=== PATIENT | male | born 1955 | race Caucasian/White ===

== ENCOUNTER → 2021-05-04 09:24 | Outpatient (CLI) | payer BC, SELFPAY ==
--- NOTE | ~2021-05-04 | CT_ITS ---
EXAMINATION: CT abdomen pelvis wo con DATE: 05/04/2021 09:56 INDICATION: Ventral hernia without distention or gangrene TECHNIQUE: Computed tomography (CT) of the abdomen and pelvis was performed without intravenous contr ast. The dose-length product (DLP) was 1069.14 mGy-cm. Automated exposure control and iterative recon struction technique were employed. COMPARISON: None FINDINGS: Minimal dependent atelectasis is present in the lung bases. The heart size is normal. A 2 m m nodule of the left lower lobe likely reflects old granulomatous disease. There is bilateral gynecom astia. The liver, spleen, pancreas,, and adrenal glands are normal. There appears to be sludge in the otherwise normal gallbladder. There is a 1.9 cm cyst of the left kidney. The right kidney is unremar kable. There is calcified atherosclerosis of the aorta and many of the other arteries. No pathologica lly enlarged abdominal or pelvic lymph nodes are identified. There is no free intraperitoneal gas or evidence of bowel obstruction. Colonic diverticulosis is present without evidence of diverticulitis. There is mild lumbar spondylosis. Changes of mesh ventral hernia repair are noted. There is a small ventral hernia containing fat just cranial to the hernia repair mesh. IMPRESSION: 1. Small midline ventral hernia containing fat just cranial to the hernia repair mesh. Reviewed, dictated and finalized at location B. IMPRESSION: 1. Small midline ventral hernia containing fat just cranial to the hernia repai r mesh.
== END ==
PROVIDERS: Visit Provider Surgery
DX: K43.9 Ventral hernia without obstruction or gangrene (principal)
CPT/HCPCS: 74176

== ENCOUNTER 2021-05-31 14:00 | Outpatient (RCR) | payer BC, SELFPAY ==
[2021-05-01 12:55] VITALS: BMI 31.9
[2021-05-01 12:56] VITALS: BMI 31.9
== END 2021-07-16 14:13 | disposition home or self-care (01) ==
LOC: ANHDMC 14:00
PROVIDERS: PCP Family Medicine; Referring Provider Family Medicine; Visit Provider Family Medicine
DX: E11.65 Type 2 diabetes mellitus with hyperglycemia (principal); Z79.4 Long term (current) use of insulin; Z71.3 Dietary counseling and surveillance; Z71.89 Other specified counseling
CPT/HCPCS: 97804; G0108

== ENCOUNTER 2021-06-06 10:33 | Outpatient (CLI) | payer BC, SELFPAY ==
--- NOTE | 2021-06-06 10:30 | ECG_ITS ---
Measurements Intervals [place] Rate: 65 P: 48 UT: 166 QRS: -42 QRSD: 116 T: 33 QT: 383 QTc: 401 Interpretive Statements SINUS RHYTHM WITH SINUS ARRHYTHMIA ATRIAL PREMATURE COMPLEX LEFT AXIS DEVIATION INCOMPLETE RIGHT BUNDLE BRANCH BLOCK BASELINE ARTIFACT- I, III, AVR, AVL, AVF BORDERLINE ECG Electronically Signed On 06-06-2021 11:28:26 MOTOR EXPERT by Jr Zhang D.O.
[2021-06-06 11:20] LABS: Basophils Percent Auto 0.5 % (0.2-1.2); Eosinophils Absolute Auto 0.1 K/mm3 (0-0.3); Eosinophils Percent Auto 2.7 % (0-4.4); Hemoglobin 14.5 g/dL (14.0-18.0); Immature Granulocyte Absolute 0.01 K/mm3 (0.00-0.031); Immature Granulocyte Percent A 0.2 % (0-0.5); Lymphocytes Percent Auto 21.7 % (18.3-44.2); Mean Corpuscular HGB Conc 33.7 g/dl (32-36); Mean Corpuscular Hemoglobin 33.3 pg (26-34); Mean Corpuscular Volume 98.6 fl (80-100); Mean Platelet Volume 9.5 fl (7.4-10.4); Monocytes Absolute Auto 0.5 K/mm3 (0.1-0.6); Monocytes Percent Auto 11.4 % (2.6-8.5); Neutrophils Absolute Auto 2.6 K/mm3 (1.3-6.7); Neutrophils Percent Auto 63.5 % (45.5-73.1); Platelet Count Result 239 k/mm3 (150-375); Red Blood Count 4.36 M/mm3 (4.6-6.20); Red Cell Distribution Width 12.1 % (11.5-14.5); White Blood Count 4.1 K/mm3 (4.5-10.0)
[2021-06-06 11:36] LABS: Anion Gap 10 mmol/L (8-16); Blood Urea Nitrogen 27 mg/dL (9-20); Calcium 9.3 mg/dL (8.4-10.2); Carbon Dioxide 24 mmol/L (22-30); Chloride 106 mmol/L (98-107); Estimated Glomerular Filt Rate 56; Glucose 113 mg/dL (65-110); Sodium 140 mmol/L (137-145)
== END 2021-06-06 10:34 | disposition home or self-care (01) ==
PROVIDERS: PCP Family Medicine; Visit Provider Surgery
DX: Z01.818 Encounter for other preprocedural examination (principal); K43.9 Ventral hernia without obstruction or gangrene; I49.9 Cardiac arrhythmia, unspecified; I45.10 Unspecified right bundle-branch block
CPT/HCPCS: 36415; 80048; 85025; 86850; 86900; 86901; 93005

== ENCOUNTER 2021-06-09 18:15 | Observation (INO) | payer BC, SELFPAY ==
[2021-06-04 09:31] VITALS: BMI 29.9
--- NOTE | 2021-06-04 09:42 | PC.NURSE ---
Report to the Outpatient Waiting Room, entrance under the green pavilion located off [facility], at time 6:30 on date 06/08/21. OR Time: 8:30. - You and your visitor will be asked a series of questions to screen for COVID 19 for your protection. - A mask is required within the hospital. - Only one visitor is allowed at this time. Patient visitors will be guided where to wait when not with patient. Preoperative COVID Testing Requirements: TO BRING COVID CARD No COVID Test needed if: (proof is required; if not received patient will have Rapid Test prior to entry) - Patient has received COVID Vaccine at least 14 days prior to procedure date or - Patient has positive COVID test result within last 90 days of surgery date. COVID Test needed if above criteria is not met If not COVID vaccinated a COVID test must be conducted within 72 hours of surgery and patient is asked to isolate self from time of testing until procedure. You will go to the [facility] for your COVID testing. The [facility] is located at the corner of [address] [facility]. You will only be called if COVID results are positive and your surgeon may reschedule your elective surgery date. Patients may have clear liquids (water, carbonated beverages, clear teas, apple juice) until 3 hours prior to surgery with a maximum of 20 ounces. - No food from midnight until time of surgery - Infants may have breast milk until 4 hours before surgery, infant formula 6 hours prior to surgery. - Children will be allowed to drink immediately following surgery. If applicable, please bring a bottle or sippy cup to assist with drinking. Juice, water, soda, and popsicles are readily available. For infants on formula, please bring formula the day of surgery. Pacifiers are allowed. Take the following medications with a SIP of water the morning of surgery: NONE Medications to discontinue per physician: VITAMINS/SUPPLEMENTS Date to take last dose: 06/04/21 Please no make-up, nail kazakh, hairspray, perfume, deodorant, or body powder the day of surgery. No jewelry (including any body piercings) or valuables the day of surgery, leave them at home. Please take a shower or bath the night before, or the morning of, surgery with an antibacterial soap. Wear comfortable, loose fitting clothing. Children are encouraged to wear pajamas. HIBICLENS SHOWER - Jewelry must be removed prior to entering the operating room. Rings and piercings that are not removed may be cut off. - The hospital will not accept responsibility for valuables. - Please leave all valuables, including medications, at home the day of surgery. If you are going home after surgery, a licensed sales route driver helper must drive you home. - NO public transportation without another adult. - We recommend that an adult stay with you for 24 hours following discharge. - We also recommend that you do not drive, make important decision, drink alcoholic beverages, or take any drugs that were not prescribed by your health care provider for at least 24 hours after your discharge time. For Pediatric surgeries, we recommend two adults accompany the child home (only one inside the building at this time). Follow any additional instructions given to you from your surgeon. Telephone instructions given to GEORGINA ROBERSON and asked if any additional questions and then verbalized understanding. Patient advised to call surgeon office or pre surgery nurse liaison [phone] if any additional questions.
[2021-06-08] VITALS (18 sets, daily range): BP systolic 110–141; BP diastolic 54–71; PULSE 62–105; RESP 14–17; TEMP 36.1–37.1; O2SAT 97–100
[2021-06-08] MEDS: ACETAMINOPHEN 500 MG TABLET 1000 MG PO (06:49)
[2021-06-08 06:58] LABS: Glucose Point of Care 135 mg/dl (65-105)
--- NOTE | 2021-06-08 06:58 | WPDANESEPPF ---
Anes - Initial Pre Proc Eval Procedure: Operation Date: 06/08/21 07:30 Proposed Procedures p Laparoscopic Repair Ventral Hernia - Donell Garcia MD Date/Time: 06/08/21 06:58 Surgeon: Donell Garcia MD Pre Op Diagnosis: ventral hernia Patient Data Age: 65 Gender: M Height: 1.88 m Weight: 105.8 kg Allergies Allergy/AdvReac Type Severity Reaction Status Date / Time ibuprofen Allergy Mild Hives Verified 06/08/21 06:24 Penicillins Allergy Mild Hives Verified 06/08/21 06:24 Home Medications Medication Instructions Recorded Confirmed Type empagliflozin 25 mg tablet 25 mg PO DAILY #90 tablet 05/31/20 06/08/21 Rx pravastatin 40 mg tablet 40 mg PO DAILY #90 tablet 07/06/20 06/08/21 Rx blood sugar diagnostic #50 ea 07/25/20 05/17/21 Rx blood sugar diagnostic #100 ea 08/01/20 05/17/21 Rx lancets 33 gauge #100 ea 08/01/20 05/17/21 Rx dutasteride 0.5 mg capsule 0.5 mg PO DAILY #90 cap 11/20/20 06/08/21 Rx aspirin 81 mg tablet,delayed 81 mg PO . twice weekly tablet 04/25/21 06/08/21 History release lisinopril 30 mg tablet 30 mg PO DAILY #90 tablet 04/25/21 06/08/21 Rx pen needle, diabetic 32 gauge x #100 ea 04/25/21 05/17/21 Rx 1/4 metformin 500 mg tablet,extended 1,000 mg PO DAILY #180 tablet 05/08/21 06/08/21 Rx release 24 hr insulin degludec [Tresiba 6 unit SUBCUT QAM 06/04/21 06/08/21 History FlexTouch U-100] insulin glargine [Basaglar KwikPen 6 unit SUBCUT QAM 06/04/21 06/04/21 History U-100 Insulin] multivitamin with minerals [Men's 1 tablet PO DAILY 06/04/21 06/08/21 History One Daily] Laboratory Tests 06/08/21 06:51 POC Capillary Glucose 135 mg/dl H mg/dl (65-105) ECG: Date of Service: 06/06/21 Procedure(s): CA 12 lead EKG Accession Number(s): [id number] cc: ~ Measurements Intervals [place] Rate: 65 P: 48 AR: 166 QRS: -42 QRSD: 116 T: 33 QT: 383 QTc: 401 Interpretive Statements SINUS RHYTHM WITH SINUS ARRHYTHMIA ATRIAL PREMATURE COMPLEX LEFT AXIS DEVIATION INCOMPLETE RIGHT BUNDLE BRANCH BLOCK BASELINE ARTIFACT- I, III, AVR, AVL, AVF BORDERLINE ECG Electronically Signed On 06-06-2021 11:28:26 HEELER by Jr Zhang D.O. Patient hx anesthesia problems: none Family hx anesthesia problems: none Results Review: All pre-operative results and documents have been reviewed as part of the pre-operative evaluation. [facility] Past Medical History Medical History Acute non-recurrent maxillary sinusitis Anemia (11/04/20) hemoglobin 12.2 on 11/13/2020 with iron 75 with 26% saturation and ferritin 37 with vitamin B12 514 and folic acid 16.4. Hemoglobin 13.5 on 04/18/2021 BMI 31.0-31.9,adult BPH without obstruction/lower urinary tract symptoms Chronic acquired lymphedema Chronic anxiety Chronic kidney disease (CKD) stage G3a/A3, moderately decreased glomerular filtration rate (GFR) between 45-59 mL/min/1.73 square meter and albuminuria creatinine ratio greater than 300 mg/g (~04/18/21) GFR 48 on 04/18/2021, decreased from 61, decreased from 79 Controlled diabetes mellitus without complication, without long-term current use of insulin COVID-19 (~07/29/20) Diabetes Diabetes mellitus with hyperglycemia, with long-term current use of insulin Encounter for prostate cancer screening Encounter for screening for diabetic retinopathy (12/21/20) no diabetic retinopathy on 12/21/2020 Encounter for screening for other viral diseases Encounter for wellness examination in adult Essential (primary) hypertension History of bone cyst History of deep venous thrombosis (DVT) of distal vein of left lower extremity Hx of blood clots Hx of fractu
[2021-06-08] MEDS: LACTATED RINGERS 1,000 ML 30 ML IV CONT ×2 (07:03→09:43)
--- NOTE | 2021-06-08 07:26 | WPDHPUPDATE1 ---
History and Physical Update Update Date/Time: 06/08/21 07:26 History and Physical has been reviewed, including an updated exam of the patient. There are NO changes in the patient's condition. Risks, benefits, and alternatives have been discussed and questions answered. Patient agrees to proceed with procedure.
[2021-06-08] MEDS: ceFAZolin 2 GM/D5W 50 ML 2 GM/50 ML BAG IVPB (07:33)
[2021-06-08] MEDS: BUPIVACAINE HCL 0.5% PF 30 ML VIAL INFILTRATE (07:51)
[2021-06-08 09:51] LABS: Glucose Point of Care 177 mg/dl (65-105)
--- NOTE | 2021-06-08 10:08 | W.PM.PROC2 ---
Procedure Note - Detailed Date of Procedure 06/08/21 Pre-op Diagnosis Recurrent ventral hernia Post-op Diagnosis same Procedure Performed Laparoscopic repair recurrent ventral hernia with 10 x [address] mesh Surgeon Donell Garcia MD [employer] Salesperson Anastasiia VELAZQUEZ Anesthesia general and local (0.5% Marcaine plain) Indications Patient underwent laparoscopic umbilical hernia repair in 2009. He has developed a bulge in the mid abdomen in the midline above the umbilicus consistent with a recurrent hernia. CT scan shows this hernia to be just above the edge of the previous mesh. He is taken to surgery now for laparoscopic repair of his recurrent ventral hernia. Findings Defect was small 1.5 x 2 cm in the midline. It was about 2 cm cephalad to the old mesh. The previous [place]-Humberto dual mesh plus was well incorporated to the abdominal wall and did not require any removal or manipulation. Description of Procedure Patient was taken to surgery and induced into general anesthesia. The abdomen was prepped and draped. The initial trocar was placed in the left subcostal position. Local was infiltrated and applied Medical optical trocar was placed. We then insufflated and placed 2 more trocars 1 in the left epigastric area and 1 in the left lower quadrant. The left lower quadrant trocar was a 10 11 port. The adhesions to the hernia as well as the previous mesh hernia repair were noted. We took these down sharply using minimal cautery. This went well and the anterior abdominal wall was well exposed. Hernia dimensions were as noted above. I then took down the falciform ligament well up towards the xiphoid process so that we had plenty of space for the cephalad portion of our mesh repair. I then measured the hernia defect with dimensions as above. A 10 x [address] mesh was chosen. I marked on the skin the location of the hernia defect. I then placed the mesh over the defect and ricky the outlines of the mesh. The for transfascial sutures were marked on the skin as well. I then used a [place]-Humberto [address] 4 transfascial sutures on the Ventralight ST mesh. The cephalad transfascial suture was marked with the black marker. The mesh was then rolled and placed in the abdomen. It was unrolled and correctly oriented. Using the [employer] suture Passer, I passed each of the transfascial sutures through the appropriate sites that had been marked. We checked position as we brought out each suture and the position looked good. Went all had been positioned, we stopped insufflation and I tied each of the transfascial sutures. We then reinsufflated and again checked the mesh and its position. All looked good. I used the Capsure metal Tacker for the lower 3rd of the mesh as this would be tacking the current Ventralight mesh over the [place]-Humberto dual mesh Plus. Multiple tacks were placed to hold this in position. Some of the Capsure tacks were also used other places in the mesh. Following this I used the Opti Fix Tacker which were absorbable tacks to complete the process of securing the mesh to the anterior abdominal wall adequately. We then inspected all areas of dissection and repair. All looked good. We evacuated CO2 and removed the trocar sleeves. Trocar site wounds were closed with subcuticular 4-0 Monocryl skin suture. The trocar sites as well as all the transfascial suture sites were then closed with Exofin surgical adhesive. The patient was then awakened and taken to recovery in good condition. Sponge and needle counts were correct x2. Implants 10 x [address] mesh Estimated Blood Loss -5 Drains No Packing No Pathology none sent Complications No immediate complications Condition stable Disposition PACU
--- NOTE | 2021-06-08 12:49 | PC.NURSE ---
This patient, Tang Valle, was admitted to Medical Room 250-01. Patient/family oriented to hospital policies and general routines including ID bracelet, bed and alarms, visiting hours, pain management, procedures, bathroom and other care routines, personal items, smoking policy, room service/diet, and visiting hours. Information on how to activate the Rapid Response Team has been discussed. Patient/Family are encouraged to report perceived risks to care and to ask questions if they do not understand what they are told or what they should do.
[2021-06-08] MEDS: ACETAMINOPHEN 500 MG TABLET PO (15:41)
[2021-06-08] MEDS: LACTATED RINGERS 1,000 ML 80 ML IV CONT (15:41)
--- NOTE | 2021-06-08 16:45 | WPDCN ---
Assessment and Plan Assessment and plan (1) Ventral hernia: Qualifiers: Obstruction and gangrene presence: without obstruction or gangrene Qualified Code(s): K43.9 - Ventral hernia without obstruction or gangrene Code(s): K43.9 - Ventral hernia without obstruction or gangrene Status: Acute Assessment and Plan: Status post laparoscopic repair of recurrent ventral hernia with mesh. Wound care, pain control, and DVT prophylaxis deferred to primary service. (2) Insulin dependent type 2 diabetes mellitus: Code(s): E11.9 - Type 2 diabetes mellitus without complications; Z79.4 - termite control representative (current) use of insulin Status: Acute Assessment and Plan: Postoperative glucose reviewed. Patient has not had much dinner this evening thus will hold evening Tresiba and possibly resume that starting tomorrow. Initiate sliding scale insulin, Accu-Cheks, and hypoglycemic protocol. (3) Essential (primary) hypertension: Code(s): I10 - Essential (primary) hypertension Status: Acute Assessment and Plan: Blood pressures were reviewed and they have been stable postoperatively. Continue antihypertensives and monitor closely. (4) Mixed hyperlipidemia: Code(s): E78.2 - Mixed hyperlipidemia Status: Acute Assessment and Plan: Continue statin and check LFTs in a.m.. Additional Plan Thank you for allowing us to participate in this patient's care. Please do not hesitate to contact us with any questions. Supervising physician for this medical consultation is Dr. Benoit Williamson. HPI Data of Consult Date/Time: 06/08/21 16:45 Requesting Physician: Donell Garcia MD Primary Care Provider: Sergey Stout MD Consult Narrative Narrative: This is a very pleasant 65-year-old male with insulin-dependent diabetes, chronic kidney disease, hypertension, and dyslipidemia whom the hospitalist service has been consulted for management of his medical conditions postoperatively. He is status post laparoscopic repair of a recurrent ventral hernia with message per Dr. Garcia earlier today. His surgery was performed under general and local anesthesia with no immediate complications documented an estimated blood loss of perhaps 5 mL. Postoperatively he has a bit of discomfort but nothing significant. His appetite has not been great but he denies overt nausea and vomiting. He also denies postoperative fever, chills, sweats, chest pain, and shortness of breath. Review of Systems Review of Systems: Twelve systems were reviewed. He denies syncope and near syncope. No palpitations. No history of cardiac disease. No orthopnea or PND. No recent cold or flu symptoms. He denies chest pain shortness of breath. He has chronic left lower extremity edema from a previous DVT, and that is unchanged. He was recently started on insulin he thinks his glucose has been better since that time. His most recent hemoglobin A1c was around 8.5. Except as documented, all other systems were reviewed and are negative. [facility] Past Medical History Medical History (Updated 06/08/21 @ 20:32 by Perlita Michaels PA-C) Acute non-recurrent maxillary sinusitis Anemia (11/04/20) hemoglobin 12.2 on 11/13/2020 with iron 75 with 26% saturation and ferritin 37 with vitamin B12 514 and folic acid 16.4. Hemoglobin 13.5 on 04/18/2021 BMI 31.0-31.9,adult BPH without obstruction/lower urinary tract symptoms Chronic acquired lymphedema Chronic anxiety Chronic kidney disease (CKD) stage G3a/A3, moderately decreased glomerular filtration rate (GFR) between 45-59 mL/min/1.73 square meter and albuminuria creatinine ratio greater than 300 mg/g (~04/18/21) GFR 48 on 04/18/2021, decreased from 61, decreased from 79 Controlled diabetes mellitus without complication, without long-term current use of insulin COVID-19 (~07/29/20) Diabetes Diabetes mellitus with hyperglycemia, with long-term
[2021-06-08 17:52] LABS: Glucose Point of Care 120 mg/dl (65-105)
[2021-06-08] MEDS: FAMOTIDINE 20 MG TABLET PO (22:53)
[2021-06-08] MEDS: ENOXAPARIN 30 MG/0.3 ML SYRINGE SUB-Q (22:53)
[2021-06-08 23:08] LABS: Glucose Point of Care 164 mg/dl (65-105)
[2021-06-09 04:07] VITALS: BP 114/60; PULSE 84; RESP 17; TEMP 36.7; O2SAT 95
[2021-06-09 05:49] LABS: Hematocrit 37.7 % (42.0-52.0); Hemoglobin 12.5 g/dL (14.0-18.0); Mean Corpuscular HGB Conc 33.2 g/dl (32-36); Mean Corpuscular Hemoglobin 33.2 pg (26-34); Mean Platelet Volume 9.7 fl (7.4-10.4); Platelet Count Result 206 k/mm3 (150-375); Red Blood Count 3.77 M/mm3 (4.6-6.20); Red Cell Distribution Width 12.4 % (11.5-14.5); White Blood Count 8.3 K/mm3 (4.5-10.0)
[2021-06-09 06:08] LABS: Anion Gap 11 mmol/L (8-16); Blood Urea Nitrogen 17 mg/dL (9-20); Calcium 9.1 mg/dL (8.4-10.2); Carbon Dioxide 20 mmol/L (22-30); Chloride 108 mmol/L (98-107); Estimated CRCL calculation 73 ml/min; Estimated Glomerular Filt Rate > 60; Glucose 154 mg/dL (65-110); Magnesium 1.8 mg/dL (1.6-2.3); Potassium 3.9 mmol/L (3.4-5.0); Sodium 139 mmol/L (137-145)
[2021-06-09 07:53] LABS: Glucose Point of Care 127 mg/dl (65-105)
--- NOTE | 2021-06-09 08:30 | PM.IMPN ---
Progress Note: A&P Assessment and Plan (1) Urinary retention: Code(s): R33.9 - Retention of urine, unspecified Status: Acute Assessment and Plan: Pt was unable to void x 2 and had to be straight cathed with 1000mls out both times -he has a hx of BPH and used to be on dutasteride but this was stopped a couple of weeks ago due to sexual dysfunction -Will start flomax -encourage ambulation -will see if he can urinate with flomax. If not, may need temporary catheter for about a week with urology f/u outpt -okay to discharge once pt successfully urinates or cather is placed (2) Ventral hernia: Qualifiers: Obstruction and gangrene presence: without obstruction or gangrene Qualified Code(s): K43.9 - Ventral hernia without obstruction or gangrene Code(s): K43.9 - Ventral hernia without obstruction or gangrene Status: Acute Assessment and Plan: Status post laparoscopic repair of recurrent ventral hernia with mesh POD 1 -currently on lovenox 30mg q12 -Wound care, pain control, and DVT prophylaxis deferred to primary service. (3) Insulin dependent type 2 diabetes mellitus: Code(s): E11.9 - Type 2 diabetes mellitus without complications; Z79.4 - intermediate school teacher (current) use of insulin Status: Acute Assessment and Plan: Last glucose 127 -continue SSI, jardiance and metformin -he takes jardiance, tresiba and metformin at home (4) Essential (primary) hypertension: Code(s): I10 - Essential (primary) hypertension Status: Acute Assessment and Plan: last bp 114/60 -continue lisionpril (5) Mixed hyperlipidemia: Code(s): E78.2 - Mixed hyperlipidemia Status: Acute Assessment and Plan: continue pravastatin (6) History of deep venous thrombosis (DVT) of distal vein of left lower extremity: Code(s): Z86.718 - Personal history of other venous thrombosis and embolism Status: Acute Assessment and Plan: patient had a provoked DVT after her lots of travel about 2 and half years ago. He took Xarelto for a year and then no longer has needed treatment. He has chronic left leg swelling which has not changed since this event. He has no pain or erythema to the area. No DVT suspected. Encouraged ambulation Additional Plan Thank you for allowing us to participate in this patient's care. Please do not hesitate to contact us with any questions. Time Spent With Patient Time with patient: 25 - 35 minutes Subjective Date/time seen: 06/09/21 08:30 Interval history: Pt is a 65-year-old male here for hernia repair. Patient was seen today and was unable to void overnight. He had to be straight cathed twice with over 1000 mL out. The patient states he has never had this issue before. He has a history of prostate problems and used to take finasteride but that was stopped due to sexual dysfunction. he says he has no pain with urination he just simply can not urinate. He denies abdominal pain, chest pain, shortness of breath, fevers, chills, nausea or vomiting. he had a history of a left leg blood clot do not years ago and he took Xarelto for a year for this. This was provoked due to prolonged travel at the time. No issues since Review of Systems Review of Systems: All systems reviewed & are unremarkable except as noted in HPI and below Exam Narrative: General: Well developed well nourished patient in NAD HEENT: normocephalic Neck: supple Neuro: Alert and oriented x4 CV:RRR Resp:CTA Abd: Soft, non distended. No pain to palpation. Positive bowel sounds. incision sites clean and dry without dehiscence, discharge or erythema. Extremities: Chronic left leg swelling with stasis changes due to an old blood clot. No erythema or pain to palpation. Objective Data Vital Signs Vital Signs: Vital Signs - 24 hr 06/08/21 09:43 06/08/21 09:55 06/08/21 10:10 Temperature 98.2 F Pulse Ra
[2021-06-09] MEDS: lisinopriL 10 MG TABLET 30 MG PO (08:44)
[2021-06-09] MEDS: EMPAGLIFLOZIN 25 MG TABLET PO (08:44)
[2021-06-09] MEDS: DUTASTERIDE 0.5 MG CAPSULE PO (08:44)
[2021-06-09] MEDS: PRAVASTATIN SODIUM 20 MG TABLET 40 MG PO (08:44)
[2021-06-09] MEDS: ACETAMINOPHEN 500 MG TABLET PO (08:44)
[2021-06-09] MEDS: FAMOTIDINE 20 MG TABLET PO ×2 (08:45→21:14)
[2021-06-09] MEDS: ENOXAPARIN 30 MG/0.3 ML SYRINGE SUB-Q ×2 (08:45→21:14)
[2021-06-09] MEDS: metFORMIN HCL XR 500 MG TAB.SR.24H 1000 MG PO (08:45)
[2021-06-09] MEDS: TAMSULOSIN HCL 0.4 MG CAPSULE PO (09:01)
[2021-06-09 10:15] VITALS: BP 117/67; PULSE 82; RESP 16; TEMP 36.6; O2SAT 99
[2021-06-09 11:47] LABS: Glucose Point of Care 170 mg/dl (65-105)
[2021-06-09] MEDS: MENTHOL 10% / METHYL SALICYLATE 15% 57 GM TUBE 1 APPLIC TOPICAL (11:47)
[2021-06-09 14:05] VITALS: BP 116/55; PULSE 86; RESP 16; TEMP 36.8; O2SAT 96
[2021-06-09 16:59] LABS: Glucose Point of Care 141 mg/dl (65-105)
[2021-06-09] MEDS: HYDROcodone/acetaminophen (*CRX) 5-325 MG TABLET 1 TAB PO (18:12)
[2021-06-09 20:05] VITALS: BP 127/57; PULSE 81; RESP 17; TEMP 36.1; O2SAT 96
--- NOTE | 2021-06-09 21:17 | PM.PNGS ---
Progress Note: A&P Assessment and Plan (1) Ventral hernia: Onset Date: Unknown Qualifiers: Obstruction and gangrene presence: without obstruction or gangrene Qualified Code(s): K43.9 - Ventral hernia without obstruction or gangrene Code(s): K43.9 - Ventral hernia without obstruction or gangrene Status: Acute Assessment and Plan: doing okay other than urinary retention postop day 1. Patient has tolerated diet and walking the halls. Encouraged this further. Will see how he is doing in the morning these feeling well may consider a voiding trial prior to discharge and if he voids okay may let him go without the Shah. This would be with him knowing there is some chance of relapse any might have to come back to the emergency room to get a Shah replaced. However, he fails avoiding trial we would replace the Shah and then set him up to see our urologist as an outpatient for further evaluation of the BPH continued follow-up possible Shah removal after the Flomax has longer to work. (2) Urinary retention: Onset Date: ~06/08/21 Code(s): R33.9 - Retention of urine, unspecified Status: Acute Assessment and Plan: see noted been (3) Insulin dependent type 2 diabetes mellitus: Onset Date: Unknown Code(s): E11.9 - Type 2 diabetes mellitus without complications; Z79.4 - marine oil terminal superintendent (current) use of insulin Status: Acute Assessment and Plan: continue current meds, appreciate hospitalist's help (4) CKD stage 3 due to type 2 diabetes mellitus: Code(s): E11.22 - Type 2 diabetes mellitus with diabetic chronic kidney disease; N18.30 - Chronic kidney disease, stage 3 unspecified Status: Acute (5) BMI 31.0-31.9,adult: Code(s): Z68.31 - Body mass index [BMI] 31.0-31.9, adult Status: Acute Subjective Subjective Date/Time Seen: 06/09/21 21:17 Post Op day: 1 ( Status post laparoscopic ventral incisional hernia repair) Patient reports: other ( difficulty voiding post-op, now has Shah) Interval history: Thepatient denies much pain. He is tolerating a low-fiber diet. He has walked in the halls. Review of Systems Review of Systems: All systems reviewed & are unremarkable except as noted in HPI and below Constitutional: Constitutional: Reports as per HPI, Denies chills and Denies fever(s) Cardiovascular: Cardiovascular: Denies chest pain and Denies dyspnea Respiratory: Respiratory: Reports no additional respiratory complaints and Denies dyspnea Gastrointestinal: Gastrointestinal: Reports as per HPI and Denies bloating Musculoskeletal: Musculoskeletal: Reports no additional musculoskeletal complaints Neurologic: Denies memory loss Psychiatric: Psychiatric: Denies anxiety and Denies memory loss Exam Const: General: cooperative, comfortable, alert and awake Orientation/consciousness: patient oriented x3 HENMT: Head: normal to inspection Mouth: Yes moist mucous membranes Eyes: Sclera: sclerae normal Pupils: Equal, round and reactive pupils present Neck: Neck: normal visual inspection and no JVD Chest: Chest palpation & inspection: normal inspection of the chest Resp: Effort & Inspection: normal respiratory effort Auscultation: clear to auscultation bilaterally Cardio: Jugular venous distension: no JVD Rate: regular rate GI: Inspection: normal to inspection, incision ( clean and dry) and no visible herniation GI Palp: Yes abdominal tenderness (mild) Neuro: General: patient oriented x3 Cranial nerves: Yes Equal, round and reactive pupils present Objective Data Vital Signs Vital Signs: Vital Signs - 24 hr 06/08/21 23:45 06/09/21 04:07 06/09/21 10:15 Temperature 36.7 C 36.7 C 36.6 C Pulse Rate 92 84 82 Respiratory Rate 16 17 16 Blood Pressure 125/61 114/60 117/67 Pulse Oximetry 100 95 99 06/09/21 14:05 06/09/21 20:05 Temperature 36.8 C 36.1 C L Pulse Rate 86 81 Respiratory Rate 16 17 Blood Pressur
[2021-06-10 04:18] VITALS: BP 135/70; PULSE 68; RESP 17; TEMP 36.6; O2SAT 95
[2021-06-10 06:00] LABS: Hematocrit 37.2 % (42.0-52.0); Hemoglobin 12.2 g/dL (14.0-18.0); Mean Corpuscular HGB Conc 32.8 g/dl (32-36); Mean Corpuscular Hemoglobin 32.3 pg (26-34); Mean Corpuscular Volume 98.4 fl (80-100); Mean Platelet Volume 9.6 fl (7.4-10.4); Platelet Count Result 193 k/mm3 (150-375); Red Blood Count 3.78 M/mm3 (4.6-6.20); Red Cell Distribution Width 12.3 % (11.5-14.5); White Blood Count 6.3 K/mm3 (4.5-10.0)
[2021-06-10 06:13] LABS: Anion Gap 9 mmol/L (8-16); Blood Urea Nitrogen 15 mg/dL (9-20); Calcium 8.8 mg/dL (8.4-10.2); Carbon Dioxide 21 mmol/L (22-30); Chloride 106 mmol/L (98-107); Estimated CRCL calculation 70 ml/min; Estimated Glomerular Filt Rate > 60; Glucose 105 mg/dL (65-110); Potassium 3.5 mmol/L (3.4-5.0); Sodium 136 mmol/L (137-145)
[2021-06-10 07:57] LABS: Glucose Point of Care 100 mg/dl (65-105)
[2021-06-10] MEDS: metFORMIN HCL XR 500 MG TAB.SR.24H 1000 MG PO (08:41)
[2021-06-10] MEDS: EMPAGLIFLOZIN 25 MG TABLET PO (08:41)
[2021-06-10] MEDS: FAMOTIDINE 20 MG TABLET PO (08:41)
[2021-06-10] MEDS: lisinopriL 10 MG TABLET 30 MG PO (08:42)
[2021-06-10] MEDS: DUTASTERIDE 0.5 MG CAPSULE PO (08:42)
[2021-06-10] MEDS: PRAVASTATIN SODIUM 20 MG TABLET 40 MG PO (08:42)
[2021-06-10] MEDS: TAMSULOSIN HCL 0.4 MG CAPSULE PO (08:42)
[2021-06-10] MEDS: ENOXAPARIN 30 MG/0.3 ML SYRINGE SUB-Q (08:42)
--- NOTE | 2021-06-10 09:18 | PM.IMPN ---
Progress Note: A&P Assessment and Plan (1) Urinary retention: Onset Date: ~06/08/21 Code(s): R33.9 - Retention of urine, unspecified Status: Acute Assessment and Plan: Pt was unable to void x 2 and had to be straight cathed with 1000mls out both times and a rees catheter was replaced -he has a hx of BPH and used to be on dutasteride but this was stopped a couple of weeks ago due to sexual dysfunction -flomax started -encourage ambulation -voiding trial today. If he fails he will be sent home with a catheter and f/u with urology -okay to discharge once pt successfully urinates or catheter is placed (2) Ventral hernia: Onset Date: Unknown Qualifiers: Obstruction and gangrene presence: without obstruction or gangrene Qualified Code(s): K43.9 - Ventral hernia without obstruction or gangrene Code(s): K43.9 - Ventral hernia without obstruction or gangrene Status: Acute Assessment and Plan: Status post laparoscopic repair of recurrent ventral hernia with mesh POD 2 -currently on lovenox 30mg q12 -Wound care, pain control, and DVT prophylaxis deferred to primary service. (3) Insulin dependent type 2 diabetes mellitus: Onset Date: Unknown Code(s): E11.9 - Type 2 diabetes mellitus without complications; Z79.4 - ad terminal makeup operator (current) use of insulin Status: Acute Assessment and Plan: Last glucose 100 -continue SSI, Jardiance and metformin -he takes Jardiance, tresiba and metformin at home (4) Essential (primary) hypertension: Code(s): I10 - Essential (primary) hypertension Status: Acute Assessment and Plan: last bp 135/70 -continue lisinopril (5) Mixed hyperlipidemia: Code(s): E78.2 - Mixed hyperlipidemia Status: Acute Assessment and Plan: continue pravastatin (6) History of deep venous thrombosis (DVT) of distal vein of left lower extremity: Code(s): Z86.718 - Personal history of other venous thrombosis and embolism Status: Acute Assessment and Plan: patient had a provoked DVT after her lots of travel about 2 and half years ago. He took Xarelto for a year and then no longer has needed treatment. He has chronic left leg swelling which has not changed since this event. He has no pain or erythema to the area. No DVT suspected. Encouraged ambulation Additional Plan Thank you for allowing us to participate in this patient's care. Please do not hesitate to contact us with any questions. Subjective Date/time seen: 06/10/21 09:18 Interval history: Pt is a 65-year-old male here for hernia repair. Patient was seen today and was unable to void overnight and required a rees catheter. He had to be straight cathed twice with over 1000 mL out. The patient states he has never had this issue before. He has a history of prostate problems and used to take dutasteride but that was stopped due to sexual dysfunction. he says he has no pain with urination he just simply can not urinate. He denies abdominal pain, chest pain, shortness of breath, fevers, chills, nausea or vomiting. he had a history of a left leg blood clot do not years ago and he took Xarelto for a year for this. This was provoked due to prolonged travel at the time. No issues since Exam Narrative: General: Well developed well nourished patient in NAD HEENT: normocephalic Neck: supple Neuro: Alert and oriented x4 CV:RRR Resp:CTA Abd: Soft, non distended. No pain to palpation. Positive bowel sounds. incision sites clean and dry without dehiscence, discharge or erythema. Extremities: Chronic left leg swelling with stasis changes due to an old blood clot. No erythema or pain to palpation. Objective Data Vital Signs Vital Signs: Vital Signs - 24 hr 06/09/21 10:15 06/09/21 14:05 06/09/21 20:05 Temperature 97.8 F 98.2 F 97 F L Pulse Rate 82 86 81 Respiratory Rate 16 16 17 Blood
[2021-06-10 12:35] LABS: Glucose Point of Care 109 mg/dl (65-105)
[2021-06-10 14:15] VITALS: BP 113/62; PULSE 88; RESP 14; TEMP 36.3; O2SAT 96
[2021-06-10 19:13] LABS: Glucose Point of Care 111 mg/dl (65-105)
--- NOTE | 2021-06-10 19:15 | PM.DS ---
DS: Admitting Diagnosis Discharge Date 1. upper abdominal ventral incisional hernia (recurrent umbilical hernia ) 2. Urinary retention following hernia surgery Admitting Diagnosis Ventral hernia, recurrent umbilical hernia after mesh repair DS: Discharge Diagnosis Discharge Diagnosis (1) Ventral hernia: Onset Date: Unknown Qualifiers: Obstruction and gangrene presence: without obstruction or gangrene Qualified Code(s): K43.9 - Ventral hernia without obstruction or gangrene Code(s): K43.9 - Ventral hernia without obstruction or gangrene Status: Acute Assessment and Plan: this was the main reason for the patient's admission. He had a laparoscopic repair of this recurrent hernia. Surgery went well however, during the 1st 24 hours after the surgery he went into urinary retention. He gradually was advanced on his diet he was otherwise doing well and on the day of discharge a Shah catheter was removed we tried to allow him a voiding trial however after the last void of 125 cc his bladder scan showed till revealed 400 cc within the bladder. Therefore the Shah cath was placed back in and we will have him see our urologist as an outpatient. He was taking only Tylenol for pain and he will follow up with Dr. trejo in about 10-14 days. Diabetes was followed by the hospitalist during this hospitalization. (2) Urinary retention: Onset Date: ~06/08/21 Code(s): R33.9 - Retention of urine, unspecified Status: Acute Assessment and Plan: Developed after anesthesia/ surgery. Treated initially with Shah catheter because he had greater than 800 cc in his bladder on bladder scan after voiding only a small amount. After 24 hrs. of decompression with the Shah and then we gave him a voiding trial which he failed. He will follow up with our urologist as an outpatient later this week. (3) CKD stage 3 due to type 2 diabetes mellitus: Code(s): E11.22 - Type 2 diabetes mellitus with diabetic chronic kidney disease; N18.30 - Chronic kidney disease, stage 3 unspecified Status: Acute Assessment and Plan: No real problems with this during hospitalization. Followed by the hospitalist for this during his postop care. (4) Diabetes mellitus with hyperglycemia, with long-term current use of insulin: Code(s): E11.65 - Type 2 diabetes mellitus with hyperglycemia; Z79.4 - medical terminologist (current) use of insulin Status: Acute Assessment and Plan: No real problems with this during hospitalization. Followed by the hospitalist for this during his postop care. (5) Non-insulin dependent diabetes mellitus: Status: Acute DS: Summary Hospital Course Hospital Course: He had a laparoscopic repair of this recurrent hernia. Surgery went well however, during the 1st 24 hours after the surgery he went into urinary retention. He gradually was advanced on his diet he was otherwise doing well and on the day of discharge a Shah catheter was removed we tried to allow him a voiding trial however after the last void of 125 cc his bladder scan showed till revealed 400 cc within the bladder. Therefore the Shah cath was placed back in and we will have him see our urologist as an outpatient. He was taking only Tylenol for pain and he will follow up with Dr. trejo in about 10-14 days. Diabetes was followed by the hospitalist during this hospitalization Status at Discharge Functional status at discharge: independent ambulation Overall status at discharge: patient is not back to baseline Time Spent with Patient Time attestation: Total time spent providing and/or coordinating discharge services: Time spent: Greater than 30 minutes Specific discharge activities: voiding trial prior to discharge Instructions for follow-up with [facility]rology [facility] for follow-up with PCP regarding continue diabetic care and weight loss Follow-up with Dr. Trejo in 10-14 days for follow-up surgical care.
== END 2021-06-10 20:20 | disposition home or self-care (01) ==
LOC: ANHSURGERY 06-10 10:33 → ANH2MED 06-10 19:15
PROVIDERS: Admitting Provider Surgery; PCP Family Medicine; Visit Provider Surgery
PROC: (CPT 49656; principal; 2021-06-08 07:30)
DX: K43.2 Incisional hernia without obstruction or gangrene (principal); R33.9 Retention of urine, unspecified; I12.9 Hypertensive chronic kidney disease with stage 1 through stage 4 chronic kidney disease, or unspecified chronic kidney disease; E11.22 Type 2 diabetes mellitus with diabetic chronic kidney disease; N18.31 Chronic kidney disease, stage 3a; E11.65 Type 2 diabetes mellitus with hyperglycemia; D64.9 Anemia, unspecified; N40.0 Benign prostatic hyperplasia without lower urinary tract symptoms; F41.9 Anxiety disorder, unspecified; E78.2 Mixed hyperlipidemia; I87.8 Other specified disorders of veins; E66.9 Obesity, unspecified; Z68.30 Body mass index [BMI] 30.0-30.9, adult; Z79.84 Long term (current) use of oral hypoglycemic drugs; Z79.4 Long term (current) use of insulin; Z79.82 Long term (current) use of aspirin; Z86.718 Personal history of other venous thrombosis and embolism
CPT/HCPCS: 49656; 36415; 80048; 82948; 83735; 85025; 85027; 86850; 86900; 86901; 93005; A9270; G0378; J0330; J0690; J1170; J1650; J2250; J2405; J2704; J2710; J3010; J7120

== ENCOUNTER → 2024-04-22 09:18 | Outpatient (CLI) | payer MEDICARE, SELFPAY ==
--- NOTE | ~2024-04-22 | XR_ITS ---
EXAMINATION: XR hand RT min 3V DATE: 04/22/2024 09:32 INDICATION: Right hand pain at the interphalangeal joint of the thumb. TECHNIQUE: 3 views of right hand were obtained. COMPARISON: None. FINDINGS: Alignment is normal. No fracture. There is mild osteoarthritis of distal radioulnar joint, first carpometacarpal joint, and many of the metacarpophalangeal joints and interphalangeal joints. T here is severe osteoarthritis of first interphalangeal joint, moderate osteoarthritis of third metaca rpophalangeal joint, severe osteoarthritis of fifth proximal interphalangeal joint and second distal interphalangeal joint, and moderate osteoarthritis of fifth distal interphalangeal joint. IMPRESSION: 1. Polyarticular osteoarthritis. Reviewed, dictated and finalized at location A.
== END ==
PROVIDERS: PCP Family Medicine; Visit Provider Family Medicine
DX: M19.041 Primary osteoarthritis, right hand (principal); M79.644 Pain in right finger(s)
CPT/HCPCS: 73130

== ENCOUNTER 2025-05-19 10:10 | Outpatient (CLI) | payer MEDICARE, SELFPAY ==
--- OUTSIDE RECORDS SUMMARY | 2025-05-19 12:06 | XMS_ITS | Clinical Summary ---
Author Organization [facility] Address [address] [place] [id number] Phone Care Team Providers Care Hide Trimmer Name Role Phone Sergey Stout MD Primary Care Provider [phone] Allergies Active Allergy Reactions Criticality Noted Date Comments Ibuprofen 06/21/2021 Penicillins 06/21/2021 Medications dutasteride (AVODART) 0.5 MG capsule 03/22/2021 Active Jardiance 25 MG tablet 06/13/2021 Active OneTouch Verio test strip 05/10/2021 Active BD Pen Needle Micro U/F [facility] 04/25/2021 Active Lancets (OneTouch Delica Plus Exalaq38S) [facility] 05/10/2021 Active lisinopril (PRINIVIL) 30 MG tablet 04/25/2021 Active metFORMIN XR 500 MG 24 hr tablet 05/08/2021 Act carter pravastatin (PRAVACHOL) 40 MG tablet 06/12/2021 Active tamsulosin (FLOMAX) 0.4 MG 24 hr capsule 06/09/2021 Activ e Insulin Degludec 100 UNIT/ML solution Inject under the skin Active Active Problems Problem Noted Date Diagnosed Date Nonspecific abnormal results of function study o f kidney 06/24/2021 Immunizations Immunization Administration Dates Next Due Influenza TIV (IM) 03/30/2021 Family History Medical History Relation Comments Kidney disease Neg Hx Social History Tobacco Use Types Packs/Day Years Used Date Smoking Tobacco: Never Smokeless Tobacco: Never Alcohol Use Standard Drinks/Week Comments Not Currently 0 (1 standard drink = 0.6 oz pur e alcohol) Sex and Gender Information Value Date Recorded Sex Assigned at Not on file Legal Sex Male 8:53 AM MDT Gender Identity Not on file Sexual Orientation Not on file Last Filed Vital Signs Vital Sign Reading Time Taken Comments Blood Pressure 122/70 06/21/2021 10:09 AM 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 Pulse 72 06/21/2021 10:09 AM 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 Temperature 36.6 C (97.9 F) 06/21/2021 10:09 AM 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 Respiratory Rate - - Oxygen Saturation - - Inhaled Oxygen Concentration - - Weight 104 kg (230 lb) 06/21/2021 10:09 AM 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 Height 188 cm (6' 2) 06/21/2021 10:09 AM 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 Body Mass Index 29.53 06/21/2021 10:09 AM 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 Plan of Treatment Health Maintenance Due Date Last Done Comments Pneumococcal PPSV23/PCV13 65 + Years / Low and Medium Risk (1 of 2 - PCV) 2006 Influenza Vaccine (#1) 2025 03/30/2021 Insurance Care Teams Hide Trimmer Relationship Specialty Start Date End Date Sergey Stout MD [address] [place] [id number] PCP - General Internal Medicine 04/26/21
== END 2025-05-19 10:11 | disposition home or self-care (01) ==
LOC: ANHAUDIO 10:11
PROVIDERS: PCP Family Medicine; Visit Provider Otolaryngology Otolaryngology/Facial Plastic Surgery
DX: H90.3 Sensorineural hearing loss, bilateral (principal)
CPT/HCPCS: 92557; 92567